=== PATIENT | male | born 1990 | race Caucasian/White ===

== ENCOUNTER → 2019-01-25 | Outpatient (CLI) | payer SELFPAY | LOC: M OUTALCOH 08:29 | PROVIDERS: ATTEND Psychiatry & Neurology Psychiatry | DX: Z03.89 Encounter for observation for other suspected diseases and conditions ruled out (principal) ==

== ENCOUNTER 2019-02-05 09:30 | Outpatient (RCR) | payer SELFPAY | END 2019-02-27 | LOC: M OUTALCOH 09:30 | PROVIDERS: ATTEND Psychiatry & Neurology Psychiatry | DX: Z03.89 Encounter for observation for other suspected diseases and conditions ruled out (principal); F17.200 Nicotine dependence, unspecified, uncomplicated ==

== ENCOUNTER 2021-09-22 19:44 | Inpatient (IN) | payer SELFPAY ==
[~2021-09-22] VITALS: Ht 185.4 cm; Wt 86.4 kg
[2021-09-22 21:46] LABS: MEAN CORPUSCULAR HEMOGLOBIN 31.5 pg (27.0-33.0); MEAN CORPUSCULAR HGB CONC 34.8 g/dl (32.0-36.5); MEAN CORPUSCULAR VOLUME 90.6 fl (80.0-96.0); PLATELET COUNT, AUTOMATED 274 10^3/uL (150-450); RED BLOOD COUNT 5.08 10^6/uL (4.30-6.10); WHITE BLOOD COUNT 11.1 10^3/uL (4.0-10.0)
[2021-09-22 22:18] LABS: AMPHETAMINES LEVEL URINE NEGATIVE (NEGATIVE); BARBITURATES URINE NEGATIVE (NEGATIVE); BENZODIAZEPINES URINE NEGATIVE (NEGATIVE); CANNABINOIDS URINE NEGATIVE (NEGATIVE); COCAINE METABOLITE URINE NEGATIVE (NEGATIVE); METHADONE URINE NEGATIVE (NEGATIVE); OPIATES URINE NEGATIVE (NEGATIVE); PHENCYCLIDINE URINE NEGATIVE (NEGATIVE)
[2021-09-22 22:29] LABS: ACETAMINOPHEN LEVEL < 2.0 UG/ML (10.0-30.0); ALBUMIN 4.2 GM/DL (3.2-5.2); ALT/SGPT 25 U/L (12-78); BILIRUBIN,DIRECT 0.2 MG/DL (0.0-0.2); BILIRUBIN,TOTAL 0.8 MG/DL (0.2-1.0); BLOOD UREA NITROGEN 7 MG/DL (7-18); CALCIUM LEVEL 9.3 MG/DL (8.5-10.1); CARBON DIOXIDE LEVEL 28 MEQ/L (21-32); CHLORIDE LEVEL 107 MEQ/L (98-107); CREATININE FOR GFR 0.75 MG/DL (0.70-1.30); GLOMERULAR FILTRATION RATE > 60.0 (>60); GLUCOSE, FASTING 97 MG/DL (70-100); POTASSIUM SERUM 3.8 MEQ/L (3.5-5.1); SALICYLATE LEVEL 2.9 MG/DL (5.0-30.0); SODIUM LEVEL 142 MEQ/L (136-145); TOTAL PROTEIN 7.9 GM/DL (6.4-8.2)
[2021-09-23] MEDS ORDERED: ESCITALOPRAM OXALATE 10 MG TAB (LEXAPRO) PO ONE (10:05)
[2021-09-23] MEDS ORDERED: NICOTINE 14 MG/24 HR TRANSDERMAL TD ONE (10:05)
[2021-09-23] MEDS ORDERED: LEXA1TAB2 PO (11:06)
[2021-09-23] MEDS ORDERED: HOME MED LIST COMPLETE! XX SCH (11:10)
[2021-09-23 13:46] LABS: RSV AMPLIFICATION NEGATIVE (NEGATIVE)
[2021-09-23] MEDS ORDERED: NICOTINE 21MG/24HR 1 EA TRANSDERMAL TD PRN (14:25)
[2021-09-23] MEDS ORDERED: ACETAMINOPHEN TAB 650MG DOSE (2X325MG) PO PRN (14:25)
[2021-09-23] MEDS ORDERED: MOM 30ML SUSPENSION UDC PO PRN (14:25)
[2021-09-23] MEDS ORDERED: OLANZapine ORAL DISINTEGRATING TAB 5MG PO PRN (14:25)
[2021-09-23] MEDS ORDERED: MAALOX 30 ML SUSP *UDC PO PRN (14:25)
[2021-09-23 15:34] VITALS: BP 137/74
[2021-09-23] MEDS: traZODone 50 MG TAB PO PRN (22:58)
[2021-09-24 06:37] VITALS: BP 150/65
[2021-09-24] MEDS: ESCITALOPRAM OXALATE 10 MG TAB (LEXAPRO) PO SCH (08:22)
[2021-09-24] MEDS ORDERED: SERTRALINE HCL 50 MG TAB PO SCH (09:00)
[2021-09-24] MEDS: NICOTINE POLACRILEX 2 MG GUM PO PRN ×4 (11:21→21:33)
[2021-09-24] MEDS ORDERED: LORazepam 2 MG TAB PO PRN (12:10)
[2021-09-24] MEDS: THIAMINE 100 MG TAB PO SCH ×2 (12:55→21:33)
[2021-09-24] MEDS: FOLIC ACID 1 MG TAB PO SCH (12:55)
[2021-09-24] MEDS: MULTIVITAMINS/MINERALS THERAP 1 TAB PO SCH (12:55)
[2021-09-24 18:26] VITALS: BP 123/67
[2021-09-24] MEDS: traZODone 50 MG TAB PO PRN (22:36)
[2021-09-25 06:40] VITALS: BP 122/63
[2021-09-25] MEDS: FOLIC ACID 1 MG TAB PO SCH (08:24)
[2021-09-25] MEDS: MULTIVITAMINS/MINERALS THERAP 1 TAB PO SCH (08:24)
[2021-09-25] MEDS: THIAMINE 100 MG TAB PO SCH (08:24)
[2021-09-25] MEDS: ESCITALOPRAM OXALATE 10 MG TAB (LEXAPRO) PO SCH (08:24)
[2021-09-25] MEDS: NICOTINE POLACRILEX 2 MG GUM PO PRN ×2 (08:25→13:06)
[2021-09-25] MEDS ORDERED: NICO2GUM PO (12:13)
[2021-09-25] MEDS ORDERED: NICO21PAT TD (12:13)
[2021-09-25] MEDS ORDERED: TRAZ-252 PO (12:13)
[2021-09-25] MEDS ORDERED: LEXA1TAB2 PO (12:13)
[2021-11-18] MEDS ORDERED: BUPR300T92 (15:13)
== END 2021-09-25 14:13 | disposition home or self-care (01) | DRG 751 ==
LOC: M ED 19:44 → M ED INP 09-23 14:25 → M PSY 09-23 15:30
PROVIDERS: ADMIT Student in an Organized Health Care Education/Training Program; ATTEND Student in an Organized Health Care Education/Training Program
DX: F33.1 Major depressive disorder, recurrent, moderate (principal); F10.10 Alcohol abuse, uncomplicated; F17.210 Nicotine dependence, cigarettes, uncomplicated